=== PATIENT | male | born 1975 | race Hispanic/Latino ===

== ENCOUNTER 2017-09-20 13:00 | Emergency (ER) | payer OTHER ==
[2017-09-20 13:11] VITALS: BP 176/110
[2017-09-20 14:16] LABS: Basophils % (Auto) 1.9 % (0.0-1.8); Eosinophils % (Auto) 4.8 % (0.0-4.3); Hematocrit 43.8 % (35.5-45.6); Hemoglobin 15.3 gm/dl (11.8-15.2); Mean Corpuscular HGB Conc 35 % (32-34); Mean Corpuscular Hemoglobin 33 pg (28-32); Mean Corpuscular Volume 93 fl (84-94); Platelet Count 270 K/mm3 (140-440); Red Cell Distribution Width 13.5 % (13.2-15.2); White Blood Count 5.6 K/mm3 (4.5-11.0)
[2017-09-20 14:43] LABS: INR 0.91 (0.87-1.13)
[2017-09-20 14:44] LABS: Partial Thromboplastin Time 31.5 Sec. (24.2-36.6)
[2017-09-20 14:48] LABS: Anion Gap 19 mmol/L; BUN/Creatinine Ratio 15; Blood Urea Nitrogen 12 mg/dL (9-20); Calcium 9.3 mg/dL (8.4-10.2); Carbon Dioxide 26 mmol/L (22-30); Chloride 97.9 mmol/L (98-107); Glucose 103 mg/dL (75-100); Sodium 139 mmol/L (137-145)
== END 2017-09-20 15:43 | disposition left against medical advice (07) ==
LOC: ED 13:00
DX: R07.9 Chest pain, unspecified (principal); Z53.21 Procedure and treatment not carried out due to patient leaving prior to being seen by health care provider
CPT/HCPCS: 36415; 80048; 84484; 85025; 85379; 85610; 85730; 93005; 93010